=== PATIENT | female | born 1990 | race African-American/Black ===

== ENCOUNTER → 2023-11-18 | Outpatient (CLI) | payer OTHER | LOC: M RAD 17:28 | PROVIDERS: ATTEND Physician Assistant | DX: M25.542 Pain in joints of left hand (principal); M25.541 Pain in joints of right hand ==

== ENCOUNTER → 2024-11-29 | Outpatient (CLI) | payer OTHER | LOC: M PLAIMG 10:38 | PROVIDERS: ATTEND Student in an Organized Health Care Education/Training Program | DX: M75.31 Calcific tendinitis of right shoulder (principal); M75.32 Calcific tendinitis of left shoulder ==

== ENCOUNTER 2024-12-11 20:59 | Emergency (ER) | payer OTHER ==
[~2024-12-11] VITALS: Ht 167.6 cm; Wt 83.4 kg
[2024-12-11 21:23] LABS: KETONE, URINE AUTO RFX NEGATIVE (NEGATIVE); LEUKOCYTE ESTERASE UR AUTO RFX NEGATIVE (NEGATIVE); NITRITE, URINE AUTO RFX NEGATIVE (NEGATIVE); RBC, URINE AUTO RFX 1 /HPF (0-3); SQUAM EPITHELIAL CELL UR AURFX 0 /HPF (0-6); WBC, URINE AUTO RFX 0 /HPF (0-3)
[2024-12-11 21:52] LABS: BASO % 0.4 % (0.0-1.0); EOS # 0.2 10^3/uL (0.0-0.5); EOS % 1.8 % (0.0-3.0); HEMOGLOBIN 12.2 g/dl (12.0-15.5); LYMPH # 1.9 10^3/uL (1.5-5.0); LYMPH % 19.5 % (24.0-44.0); MEAN CORPUSCULAR HEMOGLOBIN 27.4 pg (27.0-33.0); MONO # 0.7 10^3/uL (0.0-0.8); MONO % 7.3 % (2.0-8.0); NEUTROPHILS # 6.9 10^3/uL (1.5-8.5); NEUTROPHILS % 70.6 % (36.0-66.0); PLATELET COUNT, AUTOMATED 319 10^3/uL (150-450); RED BLOOD COUNT 4.46 10^6/uL (4.00-5.40); WHITE BLOOD COUNT 9.8 10^3/uL (4.0-10.0)
[2024-12-11 22:15] LABS: LIPASE 32 U/L (12-53)
[2024-12-11 22:17] LABS: ALBUMIN 3.8 G/DL (3.2-5.2); ALKALINE PHOSPHATASE 56 U/L (35-104); ALT/SGPT 15 U/L (7.0-40); AST/SGOT 15 U/L (<34); BILIRUBIN,DIRECT < 0.1 MG/DL (<0.4); BILIRUBIN,TOTAL 0.2 MG/DL (0.3-1.2); BLOOD UREA NITROGEN 16 MG/DL (9-23); CALCIUM LEVEL 9.5 MG/DL (8.5-10.1); CARBON DIOXIDE LEVEL 25 MMOL/L (20-31); CHLORIDE LEVEL 104 MMOL/L (98-107); CREATININE FOR GFR 0.71 MG/DL (0.55-1.30); GLOMERULAR FILTRATION RATE > 90.0 (>60); GLUCOSE, FASTING 90 MG/DL (60-100); POTASSIUM SERUM 3.9 MMOL/L (3.5-5.1); SODIUM LEVEL 139 MMOL/L (136-145); TOTAL PROTEIN 7.2 G/DL (5.7-8.2)
[2024-12-11 22:30] LABS: HCG, SERUM QUANTITATIVE 6956.1 MIU/ML (<4.2)
[2024-12-12] MEDS ORDERED: LIDOCAINE 4% CREAM 5GM (LMX4) TOP ONE (06:25)
[2024-12-12] MEDS ORDERED: ACETAMINOPHEN 325 MG TAB PO ONE (06:25)
[2024-12-12] MEDS: ACETAMINOPHEN 325 MG TAB PO ONE (06:51)
[2024-12-12 07:44] VITALS: BP 127/74; TEMP 96.9; O2SAT 100
[2024-12-12 08:23] LABS: GC DNA AMPLIFICATION NEGATIVE (NEGATIVE)
== END 2024-12-12 07:48 | disposition home or self-care (01) ==
LOC: M ED 20:59
DX: O26.899 Other specified pregnancy related conditions, unspecified trimester (principal); R51.9 Headache, unspecified; R10.2 Pelvic and perineal pain; Z87.59 Personal history of other complications of pregnancy, childbirth and the puerperium

== ENCOUNTER → 2025-03-18 | Outpatient (CLI) | payer OTHER, SELFPAY | LOC: M WHC 11:41 | PROVIDERS: ATTEND Nurse Practitioner Family | DX: Z34.80 Encounter for supervision of other normal pregnancy, unspecified trimester (principal); Z3A.19 19 weeks gestation of pregnancy ==

== ENCOUNTER → 2025-04-11 | Outpatient (CLI) | payer OTHER | LOC: M WHC 14:10 | PROVIDERS: ATTEND Nurse Practitioner Family | DX: Z34.82 Encounter for supervision of other normal pregnancy, second trimester (principal); Z3A.23 23 weeks gestation of pregnancy ==

== ENCOUNTER → 2025-05-23 | Outpatient (CLI) | payer OTHER ==
[2025-05-23 13:20] LABS: PLATELET COUNT, AUTOMATED 234 10^3/uL (150-450)
[2025-05-23 14:26] LABS: HIV 1&2 SCREEN NEGATIVE (NEGATIVE)
[2025-05-23 14:34] LABS: HEPATITIS C VIRUS ABY INDEX < 0.02 INDEX (<0.8)
[2025-05-23 15:20] LABS: Trichomonas vaginalis (AMP) NOT DETECTED (NEGATIVE)
[2025-05-23 15:44] LABS: GC DNA AMPLIFICATION NEGATIVE (NEGATIVE)
== END ==
LOC: M PLALAB 11:10
PROVIDERS: ATTEND Obstetrics & Gynecology
DX: Z34.82 Encounter for supervision of other normal pregnancy, second trimester (principal); Z11.3 Encounter for screening for infections with a predominantly sexual mode of transmission

== ENCOUNTER → 2025-05-24 | Outpatient (CLI) | payer OTHER | LOC: M PLALAB 11:39 | PROVIDERS: ATTEND Obstetrics & Gynecology | DX: Z34.82 Encounter for supervision of other normal pregnancy, second trimester (principal) ==

== ENCOUNTER → 2025-06-17 | Outpatient (CLI) | payer OTHER | LOC: M WHC 06:51 | PROVIDERS: ATTEND Nurse Practitioner Family | DX: O26.13 Low weight gain in pregnancy, third trimester (principal); Z36.4 Encounter for antenatal screening for fetal growth retardation; Z3A.32 32 weeks gestation of pregnancy ==

== ENCOUNTER → 2025-07-09 | Outpatient (REF) | payer OTHER | LOC: M SFHCWAGY 15:11 | PROVIDERS: ATTEND Nurse Practitioner Family | DX: Z36.85 Encounter for antenatal screening for Streptococcus B (principal); Z3A.35 35 weeks gestation of pregnancy ==